=== PATIENT | female | born 1935 | race Caucasian/White ===

== ENCOUNTER → 2017-01-18 | Outpatient (CLI) | payer MEDICARE, BC | LOC: MW.CHIM 08:00 | PROVIDERS: ATTEND Internal Medicine | DX: I48.91 Unspecified atrial fibrillation (principal); I34.0 Nonrheumatic mitral (valve) insufficiency; I35.0 Nonrheumatic aortic (valve) stenosis; Z79.01 Long term (current) use of anticoagulants | CPT/HCPCS: 99214 ==

== ENCOUNTER → 2017-01-31 | Outpatient (CLI) | payer MEDICARE, BC ==
--- NOTE | 2017-02-02 15:14 | ECHO ---
The echocardiogram report can be seen in this patient's EMR in the Reports section. LOIS
== END ==
LOC: MW.US 13:02
PROVIDERS: ATTEND Internal Medicine
DX: I48.91 Unspecified atrial fibrillation (principal)
CPT/HCPCS: 93306

== ENCOUNTER → 2017-02-03 | Outpatient (CLI) | payer MEDICARE, BC | LOC: MW.CHIM 08:00 | PROVIDERS: ATTEND Internal Medicine | DX: I48.91 Unspecified atrial fibrillation (principal); I35.0 Nonrheumatic aortic (valve) stenosis | CPT/HCPCS: G0463 ==

== ENCOUNTER 2017-07-19 23:17 | Observation (INO) | payer MEDICARE, BC ==
--- NOTE | 2017-07-19 23:22 | EDM.PDOC ---
ED HPI GENERAL MEDICAL PROBLEM - General Stated Complaint: PT HAS CHEST PAIN Time Seen by Provider: 07/20/17 01:26 - History of Present Illness INITIAL COMMENTS - FREE TEXT/NARRATIVE: HISTORY AND PHYSICAL: History of present illness: Patient 81-year-old female history of atrial fibrillation who presents with a concern of palpitations she states she has been in and out of atrial fibrillation that she had approximate 4-5 days ago a recurrence shortly prior to arrival she denies associated chest pain shortness of breath nausea vomiting or diaphoresis Review of systems: As per history of present illness and below otherwise all systems reviewed and negative. Past medical history: As per history of present illness and as reviewed below otherwise noncontributory. Surgical history: As per history of present illness and as reviewed below otherwise noncontributory. Social history: No reported history of drug or alcohol abuse. Family history: As per history of present illness and as reviewed below otherwise noncontributory. Physical exam: HEENT: Atraumatic, normocephalic, pupils reactive, negative for conjunctival pallor or scleral icterus, mucous membranes moist, throat clear, neck supple, nontender, trachea midline. Lungs: Clear to auscultation, breath sounds equal bilaterally, chest nontender. Heart: S1S2, irregular, negative for clicks, rubs, or JVD. Abdomen: Soft, nondistended, nontender. Negative for masses or hepatosplenomegaly. Negative for costovertebral tenderness. Pelvis: Stable nontender. Genitourinary: Deferred. Rectal: Deferred. Extremities: Atraumatic, negative for cords or calf pain. Neurovascular unremarkable. Neuro: Awake, alert, oriented. Cranial nerves II through XII unremarkable. Cerebellum unremarkable. Motor and sensory unremarkable throughout. Exam nonfocal. Diagnostics: CBC CMP troponin PT/INR chest x-ray EKG Therapeutics: IV O2 monitor Impression: #1 palpitations history of atrial fibrillation Definitive disposition and diagnosis as appropriate pending reevaluation and review of above. - Related Data Allergies Allergy/AdvReac Type Severity Reaction Status Date / Time No Known Allergies Allergy Verified 07/19/17 23:25 Home Meds: Home Meds Levothyroxine 50 mcg PO DAILY #30 tablet 01/31/14 [Rx] Rivaroxaban [Xarelto] 20 mg PO DAILY 07/19/17 [History] Metoprolol Tartrate 12.5 mg PO DAILY 07/20/17 [History] Social & Family History - Tobacco Use Years of Tobacco use: 20 Used Tobacco, but Quit: Yes Month Tobacco Last Used: 1980 Second Hand Smoke Exposure: No - Alcohol Use Days Per Week of Alcohol Use: 0 - Recreational Drug Use Recreational Drug Use: No ED ROS GENERAL - Review of Systems Review Of Systems: ROS reveals no pertinent complaints other than HPI. ED EXAM, GENERAL - Physical Exam Exam: See Below (See dictation) Course - Vital Signs Text/Narrative:: Patient is currently in flutter with variable block with a controlled rate and remains asymptomatic at this time I discussed with her admission for observation case was discussed with Dr. Arreola who graciously accepts the patient to telemetry as an observation admission Last Recorded V/S: Last Vital Signs Temp 36.2 C 07/19/17 23:25 Pulse 68 07/19/17 23:50 Resp 19 07/20/17 00:25 BP 121/76 07/20/17 00:25 Pulse Ox 94 L 07/20/17 00:25 - Orders/Labs/Meds Orders: Active Orders 24 hr Category Date Time Status EKG 12 Lead [EKG Documentation Completion] [RC] STAT Care 07/20/17 00:05 Active EKG 12 Lead [EKG Documentation Completion] [RC] STAT Care 07/20/17 00:06 Active Chest 1V Frontal [CR] Stat Exams 07/19/17 23:28 Taken Labs: Laboratory Tests 07/19/17 07/19/17 07/19/17 Range/Units 23:41 23:41 23:41 WBC 7.15 (4.0-11.0) K/uL RBC 4.59 (4.30-5.90) M/uL Hgb 13.7 (12.0-16.0) g/dL Hct 41.2 (36.0-46.0) % MCV 89.8 (80.0-98.0) fL MCH 29.8 (27.0-32.0) pg MCHC 33.3 (31.0-37.0) g/dL RDW Std Deviation 45.3 (28.0-62.0) fl RDW Coeff of [place] 14 (11.0-15.0) % Plt Count 190 (150-400) K/uL MPV 9.80 (7.40-12.00) fL Neut % (Auto) 47.7 L (48.0-80.0) % Lymph % (Auto) 38.5 (16.0-40.0) % [place] % (Auto) 11.0 (0.0-15.0) % Eos % (Auto) 2.2 (0.0-7.0) % Baso % (Auto) 0.6 (0.0-1.5) % Neut # (Auto) 3.4 (1.4-5.7) K/uL Lymph # (Auto) 2.8 H (0.6-2.4) K/uL [place] # (Auto) 0.8 (0.0-0.8) K/uL Eos # (Auto) 0.2 (0.0-0.7) K/uL Baso # (Auto) 0.0 (0.0-0.1) K/uL Nucleated RBC % 0.0 /100WBC Nucleated RBCs # 0 K/uL INR 1.31 H (0.86-1.11) Sodium 140 (136-146) mmol/L Potassium 3.8 (3.5-5.1) mmol/L Chloride 109 (98-110) mmol/L Carbon Dioxide 22 (21-31) mmol/L BUN 21 (6.0-23.0) mg/dL Creatinine 1.0 (0.6-1.5) mg/dL Est Cr Clr Drug Dosing TNP Estimated GFR (MDRD) 53.5 ml/min Glucose 127 H (60-110) mg/dL Calcium 9.4 (8.8-10.8) mg/dL Total Bilirubin 0.3 (0.1-1.5) mg/dL AST 17 (5-40) IU/L ALT 12 (8-54) IU/L Alkaline Phosphatase 106 (40-150) Troponin I < 0.10 (0.0-0.29) NG/ML Total Protein 7.2 (6.0-8.0) g/dL Albumin 4.0 (3.4-4.8) g/dL Globulin 3.2 (2.0-3.5) g/dL Albumin/Globulin Ratio 1.3 (1.3-2.8) Meds: Medications Discontinued Medications Generic Name Dose Route Start Last Admin Trade Name Freq PRN Reason Stop Dose Admin Diltiazem HCl 25 mg 07/19/17 23:27 07/19/17 23:33 Diltiazem IVPUSH 07/19/17 23:28 25 mg ONETIME ONE Administration Departure - Departure Time of Disposition: 01:27 Disposition: Refer to Observation Condition: Good Clinical Impression: Afib, Atrial fibrillation, Atrial flutter - Discharge Information - My Orders Last 24 Hours: My Active Orders 07/19/17 23:28 Chest 1V Frontal [CR] Stat 07/20/17 00:05 EKG 12 Lead [EKG Documentation Completion] [RC] STAT 07/20/17 00:06 EKG 12 Lead [EKG Documentation Completion] [RC] STAT - Assessment/Plan Last 24 Hours: My Active Orders 07/19/17 23:28 Chest 1V Frontal [CR] Stat 07/20/17 00:05 EKG 12 Lead [EKG Documentation Completion] [RC] STAT 07/20/17 00:06 EKG 12 Lead [EKG Documentation Completion] [RC] STAT
[2017-07-19] MEDS ORDERED: Diltiazem 25 MG/5 ML SDV IVPUSH ONE (23:27)
[2017-07-20 00:22] LABS: CHLORIDE,CL 109 mmol/L (98-110); SODIUM,NA 140 mmol/L (136-146)
[2017-07-20] MEDS ORDERED: Morphine 2 MG/ML Syringe IVPUSH PRN (02:17)
[2017-07-20] MEDS ORDERED: Acetaminophen 325 MG Tab PO PRN (02:17)
[2017-07-20] MEDS ORDERED: Sodium Chloride 0.9% 1,000 ML IV SCH (02:30)
--- NOTE | 2017-07-20 09:56 | PCM.HP ---
<Shay House - Last Filed: 07/20/17 09:49> H&P History of Present Illness - General Date of Service: 07/20/17 Admit Problem/Dx: Admission Diagnosis/Problem Admission Diagnosis/Problem Atrial fibrillation Source of Information: Patient History Limitations: Reports: No Limitations - History of Present Illness Initial Comments - Free Text/Narative: 81-year-old female with a history of atrial fibrillation that is being admitted with atrial fibrillation/flutter with variable block as evidenced on EKG. Patient is currently taking short acting metoprolol 12.5 mg daily as well as a relative for anticoagulation secondary to her atrial fibrillation. Patient notes that over the past 4-5 days she has been experiencing palpitations but no chest pain, shortness of breath, nausea or vomiting. She does experience this periodically but usually does not present to the ER as the palpitations will resolve. She presented to the emergency room because the palpitations were persistent. Her daughter who accompanies the patient notes that the patient has been under increased stress lately secondary to the loss of a close friend and is wondering if the stress is contributing to her palpitations. She does follow with Dr. Hearn, planning advisor, here in [place]. Her primary care provider is Dr. Mosher. Patient did have an echocardiogram performed in January of this year which showed mild aortic stenosis and a recommendation was made for follow-up echocardiogram in 1 year. In speaking with the patient this morning, she reports no new symptoms and is ready to go home. She denies any headaches, dizziness, chest pain, palpitations, shortness of breath, wheezing, cough, abdominal pain, nausea, vomiting, constipation, diarrhea, numbness/tingling/ weakness in the upper and lower extremities bilaterally, peripheral edema, fever. ER course: EKG showed atrial fibrillation/flutter with variable block. Patient was given a one-time dose of diltiazem 25 mg IV and her heart rate improved from 142 to 90. Patient was also started on normal saline at 50 mL/hour. CBC, initial troponin, CMP, INR and chest x-ray were all unremarkable. Admission diagnosis: #1. Atrial fibrillation with RVR Discharge diagnosis: #1. Atrial fibrillation, rate controlled 81-year-old female admitted with atrial fibrillation with RVR with variable block as evidenced on EKG. Patient was given a one-time dose of diltiazem in the ER which resolved her RVR and her heart rate improved to 90. Patient's heart rate remained within normal limits throughout admission. Patient had no chest pain throughout admission. Telemetry showed no evidence of atrial fibrillation. At the time of discharge, the patient was ambulating without assistance, tolerating oral intake, voiding appropriately and not experiencing any palpitations. no pain Pain Score (Numeric/FACES): 0 - Related Data Allergies/Adverse Reactions: Allergies Allergy/AdvReac Type Severity Reaction Status Date / Time No Known Allergies Allergy Verified 07/19/17 23:25 Home Medications: Home Meds Levothyroxine 50 mcg PO DAILY #30 tablet 01/31/14 [Rx] Rivaroxaban [Xarelto] 20 mg PO DAILY 07/19/17 [History] Metoprolol Tartrate 12.5 mg PO DAILY 07/20/17 [History] Past Medical History HEENT History: Reports: Cataract, Hard of Hearing Cardiovascular History: Reports: Afib Respiratory History: Reports: None Gastrointestinal History: Reports: None Genitourinary History: Reports: None [employer] History: Reports: Musculoskeletal History: Reports: None Neurological History: Reports: None Psychiatric History: Reports: None Endocrine/Metabolic History: Reports: None Hematologic History: Reports: None Immunologic History: Reports: None Oncologic (Cancer) History: Reports: None Dermatologic History: Reports: None - Infectious Disease History Infectious Disease History: Reports: Chicken Pox, Measles, Mumps - Past Surgical History Head Surgeries/Procedures: Reports: None HEENT Surgical History: Reports: Cataract Surgery, Other (See Below) Other HEENT Surgeries/Procedures: hearing aid Musculoskeletal Surgical History: Reports: Knee Replacement, Other (See Below) Other Musculoskeletal Surgeries/Procedures:: both knee surgery Social & Family History - Family History Family Medical History: Noncontributory - Tobacco Use Smoking Status *Q: Former Smoker Years of Tobacco use: 20 Used Tobacco, but Quit: No Month Tobacco Last Used: 1980 Second Hand Smoke Exposure: No - Caffeine Use Caffeine Use: Reports: Coffee - Alcohol Use Days Per Week of Alcohol Use: 0 - Recreational Drug Use Recreational Drug Use: No H&P Review of Systems - Review of Systems: Review Of Systems: See Below General: Reports: No Symptoms HEENT: Reports: No Symptoms Pulmonary: Reports: No Symptoms Cardiovascular: Reports: Palpitations Gastrointestinal: Reports: No Symptoms Genitourinary: Reports: No Symptoms Musculoskeletal: Reports: No Symptoms Skin: Reports: No Symptoms Psychiatric: Reports: No Symptoms Neurological: Reports: No Symptoms Hematologic/Lymphatic: Reports: No Symptoms Immunologic: Reports: No Symptoms Exam - Exam Exam: See Below - Vital Signs Vital Signs: Last Vital Signs Temp 97.8 F 07/20/17 08:07 Pulse 69 07/20/17 08:07 Resp 18 07/20/17 08:07 BP 123/57 L 07/20/17 08:07 Pulse Ox 95 07/20/17 08:07 Weight: 77.383 kg - Exam General: Alert, Oriented, Cooperative HEENT: Conjunctiva Clear, Hearing Intact, Mucosa Moist & [place], Nares Patent, Normal Nasal Septum Neck: Supple, Trachea Midline, 2 Lungs: Clear to Auscultation, Normal Respiratory Effort Cardiovascular: Regular Rate, Regular Rhythm GI/Abdominal Exam: Normal Bowel Sounds, Soft, Non-Tender, No Organomegaly, No Distention, No Abnormal Bruit, No Mass Extremities: Normal Inspection, Normal Range of Motion, Non-Tender, No Pedal Edema, Normal Capillary Refill Peripheral Pulses: 2+: Radial (L), Radial (R), Posterior Tibial (L), Posterior Tibial (R) Skin: Warm, Dry, Intact Neuro Extensive - Mental Status: Alert, Oriented x3, Normal Mood/Affect, Normal Cognition Psychiatric: Alert, Normal Affect, Normal Mood - Patient Data Result Diagrams: 07/19/17 23:41 07/19/17 23:41 *Q Meaningful Use (ADM) - VTE *Q VTE Criteria *Q: - Stroke *Q Stroke Criteria *Q: - AMI *Q AMI Criteria *Q: - Problem List (1) Afib, Atrial fibrillation SNOMED Code(s): 85448713 ICD Code: I48.91 - UNSPECIFIED ATRIAL FIBRILLATION Status: Acute (2) Atrial flutter SNOMED Code(s): 5284066 ICD Code: I48.92 - UNSPECIFIED ATRIAL FLUTTER Status: Acute (3) Palpitations SNOMED Code(s): 86612009 ICD Code: R00.2 - PALPITATIONS Status: Acute Problem List Initiated/Reviewed/Updated: Yes Orders Last 24hrs: Active Orders 24 hr Category Date Time Status Discontinue Telemetry Monitoring [Cardiac Monitoring Care 07/20/17 08:49 Active Discontinue] [RC] Click to Edit Ready for Discharge [RC] PER UNIT ROUTINE Care 07/20/17 08:39 Active Telemetry Monitoring [Cardiac Monitoring] [RC] Q8H Care 07/20/17 01:34 Active Heart Healthy Diet [DIET] Diet 07/20/17 Breakfast Active Acetaminophen [Tylenol] Med 07/20/17 02:17 Active 650 mg PO Q6H PRN Morphine Med 07/20/17 02:17 Active 2 mg IVPUSH Q4H PRN Sodium Chloride 0.9% [Normal Saline] 1,000 ml Med 07/20/17 02:30 Active IV ASDIRECTED Medication Orders Acetaminophen (Tylenol) 650 mg PO Q6H PRN PRN Reason: Pain (mild 1-3) Sodium Chloride (Normal Saline) 1,000 mls @ 50 mls/hr IV ASDIRECTED KAYA Last Admin: 07/20/17 03:00 Dose: 50 mls/hr Morphine Sulfate (Morphine) 2 mg IVPUSH Q4H PRN PRN Reason: Pain (severe 7-10) Assessment/Plan Comment:: 81-year-old female with a history of atrial fibrillation that is being admitted with atrial fibrillation/flutter with variable block as evidenced on EKG. Patient is currently taking short acting metoprolol 12.5 mg daily as well as a relative for anticoagulation secondary to her atrial fibrillation. Patient notes that over the past 4-5 days she has been experiencing palpitations but no chest pain, shortness of breath, nausea or vomiting. She does experience this periodically but usually does not present to the ER as the palpitations will resolve. She presented to the emergency room because the palpitations were persistent. Her daughter who accompanies the patient notes that the patient has been under increased stress lately secondary to the loss of a close friend and is wondering if the stress is contributing to her palpitations. She does follow with Dr. Hearn, planning advisor, here in [place]. Her primary care provider is Dr. Mosher. Patient did have an echocardiogram performed in January of this year which showed mild aortic stenosis and a recommendation was made for follow-up echocardiogram in 1 year. In speaking with the patient this morning, she reports no new symptoms and is ready to go home. She denies any headaches, dizziness, chest pain, palpitations, shortness of breath, wheezing, cough, abdominal pain, nausea, vomiting, constipation, diarrhea, numbness/tingling/ weakness in the upper and lower extremities bilaterally, peripheral edema, fever. ER course: EKG showed atrial fibrillation/flutter with variable block. Patient was given a one-time dose of diltiazem 25 mg IV and her heart rate improved from 142 to 90. Patient was also started on normal saline at 50 mL/hour. CBC, initial troponin, CMP, INR and chest x-ray were all unremarkable. Patient was admitted to [facility] for observation. Place on telemetry with no acute cardiac events appreciated. Heart rate remained within normal limits throughout admission. Admission diagnosis: #1. Atrial fibrillation with RVR Discharge diagnosis: #1. Atrial fibrillation, rate controlled 81-year-old female admitted with atrial fibrillation with RVR with variable block as evidenced on EKG. Patient was given a one-time dose of diltiazem in the ER which resolved her RVR and her heart rate improved to 90. Patient's heart rate remained within normal limits throughout admission. Patient had no chest pain throughout admission. Telemetry showed no evidence of atrial fibrillation. At the time of discharge, the patient was ambulating without assistance, tolerating oral intake, voiding appropriately and not experiencing any palpitations. Echocardiogram was done in January of this year which showed mild aortic stenosis. Follow-up echocardiogram in 1 year was recommended. Discharge plan: #1. Patient will be set up for follow-up appointment with her planning advisor, Dr. Hearn. #2. Follow-up appointment with Dr. Mosher, patient's primary care provider #3. All home medications have been restarted including metoprolol, Xarelto, Synthroid. <Skip Arreola - Last Filed: 07/21/17 15:37> H&P History of Present Illness - General Admit Problem/Dx: Admission Diagnosis/Problem Admission Diagnosis/Problem Atrial fibrillation I performed a history and physical examination of the patient and I have discussed the management with the resident. I have reviewed the residents note and agree with the documented findings and plan of care Exam - Vital Signs Vital Signs: Last Vital Signs Temp 36.6 C 07/20/17 08:07 Pulse 69 07/20/17 08:07 Resp 18 07/20/17 08:07 BP 123/57 L 07/20/17 08:07 Pulse Ox 95 07/20/17 08:07 - Patient Data Result Diagrams: 07/19/17 23:41 07/19/17 23:41 *Q Meaningful Use (ADM) - VTE *Q VTE Criteria *Q: - Stroke *Q Stroke Criteria *Q: - AMI *Q AMI Criteria *Q:
--- NOTE | 2017-07-20 14:55 | CR ---
EXAM DATE: 07/20/17 PATIENT'S AGE: 81 Patient: ROHAN OSPINA Facility: [place], [place] Site . Site : [id number] Study: XRay Chest [id number] 11:39:20 PM Ordering Physician: Doctor Hart Final Report: INDICATION: AFib, palpitations TECHNIQUE: Chest 1 view. COMPARISON: None FINDINGS: Cardiovascular and mediastinum: Heart size and vasculature are normal in caliber and appearance. Mediastinum is within normal limits. Lungs and pleural space: Lungs are clear. No sign of infiltrate or mass. No sign of pleural effusion. No pneumothorax. Bones and soft tissues: Deformity of the left humeral head. IMPRESSION: Unremarkable chest. Dictated by Santana Navarrete MD @ 07/19/2017 11:40:32 PM Dictated by: Santana Navarrete MD @ 07/19/2017 23:40:43 (Electronic Signature) Report Signed by Proxy. LOIS
== END 2017-07-20 09:35 | disposition home or self-care (01) ==
LOC: MW.ED 23:17 → MW.MS 07-20 01:28
PROVIDERS: ADMIT Internal Medicine; ATTEND Internal Medicine
DX: I48.0 Paroxysmal atrial fibrillation (principal); I48.92 Unspecified atrial flutter; Z79.01 Long term (current) use of anticoagulants; Z79.899 Other long term (current) drug therapy; Z87.891 Personal history of nicotine dependence; Z96.659 Presence of unspecified artificial knee joint; Z98.49 Cataract extraction status, unspecified eye
CPT/HCPCS: 36415; 71010; 80053; 84484; 85025; 85610; 93005; 96374; 99285; J3490; J7040; 99283; G0378

== ENCOUNTER 2018-01-30 18:25 | Emergency (ER) | payer MEDICARE, BC ==
--- NOTE | 2018-01-30 19:30 | EDM.PDOC ---
ED HPI GENERAL MEDICAL PROBLEM - General Chief Complaint: General Stated Complaint: NUMBNESS LIP Time Seen by Provider: 01/30/18 19:28 Source of Information: Reports: Patient History Limitations: Reports: No Limitations - History of Present Illness INITIAL COMMENTS - FREE TEXT/NARRATIVE: HISTORY AND PHYSICAL: []82-year-old female presenting with numbness to her lower lip since she awakened this morning History of Present Illness: []Patient reports no other concerns no headaches and nausea and vomiting or abdominal pain Review of Systems: As per history of present illness and below otherwise all systems reviewed and negative. Past medical history: As per history of present illness and as reviewed below otherwise noncontributory. Surgical history: As per history of present illness and as reviewed below otherwise noncontributory. Social history: No reported history of drug or alcohol abuse. Family history: As per history of present illness and as reviewed below otherwise noncontributory. Physical exam: Alert and oriented female answering questions appropriately, no slurring of words. He can full sentences without any shortness breath. HEENT: Atraumatic, normocehpalic, pupils reactive, negative for conjunctival pallor or scleral icterus, mucous membranes moist, throat clear, neck supple, nontender, trachea midline. lower Lip is "numb". Mild drooping of her lip . EKG sinus rhythm. Lungs: Clear to auscultation, breath sounds equal bilaterally, chest non tender. Heart: S1S2, regular, negative for clicks, rubs, or JVD. Abdomen: Soft, nondistended, nontender. Negative for masses or hepatossplenmegaly. Negative for costovertebral tenderness. Pelvis: Stable nontender. Genitourinary: Deferred. Rectal: Deferred Extremities: Atraumatic, negative for cords or calf pain. Neurovascular unremarkable. Neuro: Awake, alert, oriented. Cranial nerves II through XII unremarkable. Cerebellum unremarkable. Motor and sensory unremarkable throughout. Exam nonfocal. Patient was offered the ability to stay for observation overnight with my concerns and refused opportunity to stay for observation Diagnostics: []head CT cbc, cmp, amylase, lipase EKG troponin Therapeutics: []Aspirin Impression: []UTI Lip numbness Plan: []Discharged home Keep up APPOINTMENT with Dr. Hearn tomorrow as scheduled Definitive disposition and diagnosis as appropriate pending reevaluation and review of above. Onset: Today, Sudden Duration: Hour(s): Location: Reports: Face Severity: Mild Improves with: Reports: None Worsens with: Reports: None - Related Data Allergies Allergy/AdvReac Type Severity Reaction Status Date / Time No Known Allergies Allergy Verified 01/30/18 19:15 Home Meds: Home Meds Levothyroxine 50 mcg PO DAILY #30 tablet 01/31/14 [Rx] Rivaroxaban [Xarelto] 20 mg PO DAILY 07/19/17 [History] Metoprolol Tartrate 12.5 mg PO DAILY 07/20/17 [History] Ciprofloxacin HCl [Cipro] 500 mg PO BID #1 tablet 01/30/18 [Rx] Past Medical History HEENT History: Reports: Cataract, Hard of Hearing Cardiovascular History: Reports: Afib Respiratory History: Reports: None Gastrointestinal History: Reports: None Genitourinary History: Reports: None [employer] History: Reports: Musculoskeletal History: Reports: None Neurological History: Reports: None Psychiatric History: Reports: None Endocrine/Metabolic History: Reports: None Hematologic History: Reports: None Immunologic History: Reports: None Oncologic (Cancer) History: Reports: None Dermatologic History: Reports: None - Infectious Disease History Infectious Disease History: Reports: Chicken Pox, Measles, Mumps - Past Surgical History Head Surgeries/Procedures: Reports: None HEENT Surgical History: Reports: Cataract Surgery, Other (See Below) Other HEENT Surgeries/Procedures: hearing aid Musculoskeletal Surgical History: Reports: Knee Replacement, Other (See Below) Other Musculoskeletal Surgeries/Procedures:: both knee surgery Social & Family History - Family History Family Medical History: Noncontributory - Tobacco Use Smoking Status *Q: Never Smoker Second Hand Smoke Exposure: No - Caffeine Use Caffeine Use: Reports: Coffee - Recreational Drug Use Recreational Drug Use: No ED ROS GENERAL - Review of Systems Review Of Systems: ROS reveals no pertinent complaints other than HPI. ED EXAM, GENERAL - Physical Exam Exam: See Below (see dictation) Course - Vital Signs Last Recorded V/S: Last Vital Signs Temp 36.5 C 01/30/18 19:13 Pulse 70 01/30/18 20:20 Resp 18 01/30/18 20:20 BP 164/75 H 01/30/18 20:20 Pulse Ox 95 01/30/18 20:20 - Orders/Labs/Meds Orders: Active Orders 24 hr Category Date Time Status Cardiac Monitoring [RC] . DIRECTED Care 01/30/18 19:32 Active EKG Documentation Completion [RC] STAT Care 01/30/18 19:32 Active Oxygen Therapy [RC] ASDIRECTED Care 01/30/18 19:32 Active Chest 1V Frontal [CR] Stat Exams 01/30/18 19:32 Taken Head wo Cont [CT] Stat Exams 01/30/18 19:27 Taken UA W/MICROSCOPIC [URIN] Stat Lab 01/30/18 19:35 Ordered Sodium Chloride 0.9% [Saline Flush] Med 01/30/18 19:32 Active 10 ml FLUSH ASDIRECTED PRN Sodium Chloride 0.9% [Saline Flush] Med 01/30/18 19:32 Active 2.5 ml FLUSH ASDIRECTED PRN Saline Lock Insert [OM.PC] Stat Oth 01/30/18 19:32 Ordered Medication Orders Sodium Chloride (Saline Flush) 10 ml FLUSH ASDIRECTED PRN PRN Reason: Keep Vein Open Sodium Chloride (Saline Flush) 2.5 ml FLUSH ASDIRECTED PRN PRN Reason: Keep Vein Open Labs: Laboratory Tests 01/30/18 01/30/18 01/30/18 Range/Units 19:35 19:49 19:49 WBC 6.56 (4.0-11.0) K/uL RBC 4.72 (4.30-5.90) M/uL Hgb 14.0 (12.0-16.0) g/dL Hct 42.7 (36.0-46.0) % MCV 90.5 (80.0-98.0) fL MCH 29.7 (27.0-32.0) pg MCHC 32.8 (31.0-37.0) g/dL RDW Std Deviation 46.7 (28.0-62.0) fl RDW Coeff of Dominik 14 (11.0-15.0) % Plt Count 228 (150-400) K/uL MPV 10.00 (7.40-12.00) fL Neut % (Auto) 61.4 (48.0-80.0) % Lymph % (Auto) 23.9 (16.0-40.0) % [place] % (Auto) 13.0 (0.0-15.0) % Eos % (Auto) 1.2 (0.0-7.0) % Baso % (Auto) 0.5 (0.0-1.5) % Neut # (Auto) 4.0 (1.4-5.7) K/uL Lymph # (Auto) 1.6 (0.6-2.4) K/uL [place] # (Auto) 0.9 H (0.0-0.8) K/uL Eos # (Auto) 0.1 (0.0-0.7) K/uL Baso # (Auto) 0.0 (0.0-0.1) K/uL Nucleated RBC % 0.0 /100WBC Nucleated RBCs # 0 K/uL INR 1.01 Sodium (136-145) mmol/L Potassium (3.5-5.1) mmol/L Chloride (98-107) mmol/L Carbon Dioxide (21.0-32.0) mmol/L BUN (7.0-18.0) mg/dL Creatinine (0.6-1.0) mg/dL Est Cr Clr Drug Dosing mL/min Estimated GFR (MDRD) ml/min Glucose (74-106) mg/dL Calcium (8.5-10.1) mg/dL Total Bilirubin (0.2-1.0) mg/dL AST (15-37) IU/L ALT (14-63) IU/L Alkaline Phosphatase (46-116) U/L Troponin I (0.000-0.056) ng/mL Total Protein (6.4-8.2) g/dL Albumin (3.4-5.0) g/dL Globulin (2.0-3.5) g/dL Albumin/Globulin Ratio (1.3-2.8) Amylase (25-115) U/L Lipase (73-393) U/L Urine Color YELLOW Urine Appearance SLT CLOUDY Urine pH 5.5 (5.0-8.0) Ur Specific [place] 1.010 (1.001-1.035) Urine Protein NEGATIVE (NEGATIVE) mg/dL Urine Glucose (UA) NEGATIVE (NEGATIVE) mg/dL Urine Ketones NEGATIVE (NEGATIVE) mg/dL Urine Occult Blood NEGATIVE (NEGATIVE) Urine Nitrite POSITIVE H (NEGATIVE) Urine Bilirubin NEGATIVE (NEGATIVE) Urine Urobilinogen 0.2 (<2.0) EU/dL Ur Leukocyte Esterase TRACE (NEGATIVE) Urine RBC 0-1 (0-2/HPF) Urine WBC 0-2 (0-5/HPF) Ur Epithelial Cells MODERATE (NONE-FEW) Urine Bacteria 2+ H (NEGATIVE) 01/30/18 Range/Units 19:49 WBC (4.0-11.0) K/uL RBC (4.30-5.90) M/uL Hgb (12.0-16.0) g/dL Hct (36.0-46.0) % MCV (80.0-98.0) fL MCH (27.0-32.0) pg MCHC (31.0-37.0) g/dL RDW Std Deviation (28.0-62.0) fl RDW Coeff of Dominik (11.0-15.0) % Plt Count (150-400) K/uL MPV (7.40-12.00) fL Neut % (Auto) (48.0-80.0) % Lymph % (Auto) (16.0-40.0) % [place] % (Auto) (0.0-15.0) % Eos % (Auto) (0.0-7.0) % Baso % (Auto) (0.0-1.5) % Neut # (Auto) (1.4-5.7) K/uL Lymph # (Auto) (0.6-2.4) K/uL [place] # (Auto) (0.0-0.8) K/uL Eos # (Auto) (0.0-0.7) K/uL Baso # (Auto) (0.0-0.1) K/uL Nucleated RBC % /100WBC Nucleated RBCs # K/uL INR Sodium 139 (136-145) mmol/L Potassium 4.2 (3.5-5.1) mmol/L Chloride 106 (98-107) mmol/L Carbon Dioxide 25.4 (21.0-32.0) mmol/L BUN 26 H (7.0-18.0) mg/dL Creatinine 1.4 H (0.6-1.0) mg/dL Est Cr Clr Drug Dosing 26.51 mL/min Estimated GFR (MDRD) 36.2 ml/min Glucose 101 (74-106) mg/dL Calcium 9.8 (8.5-10.1) mg/dL Total Bilirubin 0.4 (0.2-1.0) mg/dL AST 19 (15-37) IU/L ALT 19 (14-63) IU/L Alkaline Phosphatase 108 (46-116) U/L Troponin I < 0.050 (0.000-0.056) ng/mL Total Protein 8.2 (6.4-8.2) g/dL Albumin 4.3 (3.4-5.0) g/dL Globulin 3.9 H (2.0-3.5) g/dL Albumin/Globulin Ratio 1.1 L (1.3-2.8) Amylase 74 (25-115) U/L Lipase 114 (73-393) U/L Urine Color Urine Appearance Urine pH (5.0-8.0) Ur Specific [place] (1.001-1.035) Urine Protein (NEGATIVE) mg/dL Urine Glucose (UA) (NEGATIVE) mg/dL Urine Ketones (NEGATIVE) mg/dL Urine Occult Blood (NEGATIVE) Urine Nitrite (NEGATIVE) Urine Bilirubin (NEGATIVE) Urine Urobilinogen (<2.0) EU/dL Ur Leukocyte Esterase (NEGATIVE) Urine RBC (0-2/HPF) Urine WBC (0-5/HPF) Ur Epithelial Cells (NONE-FEW) Urine Bacteria (NEGATIVE) Meds: Medications Generic Name Dose Route Start Last Admin Trade Name Freq PRN Reason Stop Dose Admin Sodium Chloride 10 ml 01/30/18 19:32 Saline Flush FLUSH ASDIRECTED PRN Keep Vein Open Sodium Chloride 2.5 ml 01/30/18 19:32 Saline Flush FLUSH ASDIRECTED PRN Keep Vein Open Discontinued Medications Generic Name Dose Route Start Last Admin Trade Name Sheron PRN Reason Stop Dose Admin Aspirin 324 mg 01/30/18 19:32 01/30/18 19:54 Aspirin PO 01/30/18 19:33 Not Given ONETIME ONE Ciprofloxacin 500 mg 01/30/18 20:10 01/30/18 20:19 Ciprofloxacin Hcl PO 01/30/18 20:11 500 mg ONETIME ONE Administration Departure - Departure Time of Disposition: 20:24 Disposition: Home, Self-Care 01 Condition: Good Clinical Impression: UTI, Urinary tract infectious disease, Numbness of lip - Discharge Information Prescriptions: Ciprofloxacin HCl [Cipro] 500 mg PO BID #1 tablet Instructions: Urinalysis Test Referrals: PCP,None [Primary Care Provider] - Forms: ED Department Discharge Additional Instructions: The following information is given to patients seen in the emergency department who are being discharged to home. This information is to outline your options for follow-up care. We provide all patients seen in our emergency department with a follow-up referral. The need for follow-up, as well as the timing and circumstances, are variable depending upon the specifics of your emergency department visit. If you don't have a primary care physician on staff, we will provide you with a referral. We always advise you to contact your personal physician following an emergency department visit to inform them of the circumstance of the visit and for follow-up with them and/or the need for any referrals to a consulting specialist. The emergency department will also refer you to a specialist when appropriate. This referral assures that you have the opportunity for followup care with a specialist. All of these measure are taken in an effort to provide you with optimal care, which includes your followup. Under all circumstances we always encourage you to contact your private physician who remains a resource for coordinating your care. When calling for followup care, please make the office aware that this follow-up is from your recent emergency room visit. If for any reason you are refused follow-up, please contact the [facility] emergency department at and asked to speak to the emergency department charge nurse. You has been found to have a UTI your testing has been unremarkable CT scan is without brain bleed oriented infarct Appointment with Dr. Hearn tomorrow as scheduled ReTurn to the emergency room as discussed and directed - My Orders Last 24 Hours: My Active Orders 01/30/18 19:27 Head wo Cont [CT] Stat 01/30/18 19:32 Cardiac Monitoring [RC] . DIRECTED EKG Documentation Completion [RC] STAT Oxygen Therapy [RC] ASDIRECTED Chest 1V Frontal [CR] Stat Sodium Chloride 0.9% [Saline Flush] 10 ml FLUSH ASDIRECTED PRN Sodium Chloride 0.9% [Saline Flush] 2.5 ml FLUSH ASDIRECTED PRN Saline Lock Insert [OM.PC] Stat 01/30/18 19:35 UA W/MICROSCOPIC [URIN] Stat - Assessment/Plan Last 24 Hours: My Active Orders 01/30/18 19:27 Head wo Cont [CT] Stat 01/30/18 19:32 Cardiac Monitoring [RC] . DIRECTED EKG Documentation Completion [RC] STAT Oxygen Therapy [RC] ASDIRECTED Chest 1V Frontal [CR] Stat Sodium Chloride 0.9% [Saline Flush] 10 ml FLUSH ASDIRECTED PRN Sodium Chloride 0.9% [Saline Flush] 2.5 ml FLUSH ASDIRECTED PRN Saline Lock Insert [OM.PC] Stat 01/30/18 19:35 UA W/MICROSCOPIC [URIN] Stat
[2018-01-30] MEDS ORDERED: Sodium Chloride 0.9% 10 ML Syringe FLUSH PRN (19:32)
[2018-01-30] MEDS ORDERED: Aspirin 81 MG Tab.Chew PO ONE (19:32)
[2018-01-30] MEDS ORDERED: Sodium Chloride 0.9% 2.5 ML Syringe FLUSH PRN (19:32)
[2018-01-30] MEDS ORDERED: Ciprofloxacin 500 MG Tab PO ONE (20:10)
[2018-01-30 20:15] LABS: CHLORIDE,CL 106 mmol/L (98-107); SODIUM,NA 139 mmol/L (136-145)
--- NOTE | 2018-01-31 11:11 | CT ---
EXAM DATE: 01/30/18 PATIENT'S AGE: 82 Patient: ROHAN OSPINA Facility: [place], [place] Site . Site : 1935 Study: CT Head STROKE PROTOCOL [id number]/21/2018 7:38:48 PM Ordering Physician: Doctor Hart Final Report: INDICATION: Stroke Code. CT HEAD WITHOUT CONTRAST TECHNIQUE: Multiple axial CT images were performed through the head without intravenous contrast administration. COMPARISON: No previous studies are currently available for comparison. FINDINGS: No acute intracranial hemorrhage is identified. No extra-axial collections are evident and there is no mass effect or midline shift. There is mild diffuse age-related brain atrophy. Ventricular size and configuration are within normal limits for the patient`s age. Galo-white differentiation is within normal limits. There is patchy hypodensity in the periventricular white matter, a nonspecific finding which most likely reflects chronic small vessel ischemic change. Intracranial atherosclerotic vascular calcifications are noted. Osseous structures are within normal limits and no fractures are seen. Included portions of the paranasal sinuses and mastoid air cells are normally aerated. IMPRESSION: 1. No acute intracranial abnormality identified. 2. Age-related brain atrophy, white matter hypodensity consistent with chronic small vessel ischemic change, and intracranial atherosclerotic vascular calcifications. Reported to Salvador Heath RN at 7:49pm 01/30/2018 AMALIA OBRIEN MD [employer] Dictated by: John Obrien MD @ 01/30/2018 19:55:16 (Electronic Signature) Report Signed by Proxy. [facility]
--- NOTE | 2018-01-31 14:30 | CR ---
EXAM DATE: 01/30/18 PATIENT'S AGE: 82 Patient: ROHAN OSPINA Facility: [place], [place] Site . Site : 1935 Study: XRay Chest [id number]/21/2018 8:01:24 PM Ordering Physician: Doctor Hart Final Report: INDICATION: Stroke protocol. COMPARISON: 07/19/2017. FINDINGS: A portable AP upright view of the chest was obtained. The cardiac silhouette and pulmonary vasculature are within normal limits. The lungs are clear bilaterally. IMPRESSION: No evidence of acute pulmonary disease. Dictated by Yandel Davies MD @ 01/30/2018 8:14:24 PM Dictated by: Yandel Davies MD @ 01/30/2018 20:14:35 (Electronic Signature) Report Signed by Proxy. [facility]ya
== END 2018-01-30 20:40 | disposition home or self-care (01) ==
LOC: MW.ED 18:25
DX: N39.0 Urinary tract infection, site not specified (principal); R20.0 Anesthesia of skin; I48.91 Unspecified atrial fibrillation; Z79.899 Other long term (current) drug therapy
CPT/HCPCS: 36415; 70450; 71045; 80053; 81001; 82150; 83690; 84484; 85025; 85610; 93005; 99285; A9270

== ENCOUNTER 2021-12-06 14:24 | Emergency (ER) | payer MEDICARE, BC | END 2021-12-06 15:25 | disposition home or self-care (01) | LOC: MW.ED 14:24 | DX: B02.9 Zoster without complications (principal); I48.91 Unspecified atrial fibrillation; Z79.899 Other long term (current) drug therapy | CPT/HCPCS: 99283 ==

== ENCOUNTER 2022-12-17 14:37 | Emergency (ER) | payer MEDICARE, BC ==
[2022-12-17] MEDS ORDERED: Sodium Chloride 0.9% 10 ML Syringe FLUSH PRN ×2 (14:43→15:11)
[2022-12-17] MEDS ORDERED: Sodium Chloride 0.9% 2.5 ML Syringe FLUSH PRN ×2 (14:43→15:11)
[2022-12-17] MEDS ORDERED: Sodium Chloride 0.9% 1,000 ML IV ONE (15:11)
[2022-12-17] MEDS ORDERED: Sodium Chloride 0.9% 500 ML IV STA (15:11)
[2022-12-17] MEDS ORDERED: Metoprolol Tartrate 5 MG/5 ML SDV IVPUSH STA (15:12)
[2022-12-17 15:22] LABS: CARBON DIOXIDE,CO2 23.7 mmol/L (21.0-32.0); POTASSIUM,K 4.3 mmol/L (3.5-5.1)
[2022-12-17] MEDS ORDERED: Metoprolol Succinate 25 MG Tab.ER PO STA (15:45)
== END 2022-12-17 16:33 | disposition home or self-care (01) ==
LOC: MW.ED 14:37
DX: I48.91 Unspecified atrial fibrillation (principal); R94.31 Abnormal electrocardiogram [ECG] [EKG]; I10 Essential (primary) hypertension; Z79.82 Long term (current) use of aspirin; Z79.01 Long term (current) use of anticoagulants
CPT/HCPCS: 36415; 71045; 80053; 81003; 83735; 84484; 85025; 93005; 96361; 96374; 99285; A9270; J3490; J7030

== ENCOUNTER 2023-02-23 21:15 | Emergency (ER) | payer MEDICARE, BC ==
[2023-02-23] MEDS ORDERED: Albuterol/Ipratropium 3.0-0.5 MG/3 ML Neb Soln ONE (21:20)
[2023-02-23] MEDS ORDERED: Sodium Chloride 0.9% 2.5 ML Syringe FLUSH PRN (21:23)
[2023-02-23] MEDS ORDERED: Sodium Chloride 0.9% 10 ML Syringe FLUSH PRN (21:23)
[2023-02-23 21:40] LABS: BASOPHILS ABSOLUTE AUTO 0.1 K/uL (0.0-0.1); BASOPHILS PERCENT AUTO 0.5 % (0.0-1.5); EOSINOPHILS ABSOLUTE AUTO 0.1 K/uL (0.0-0.7); EOSINOPHILS PERCENT AUTO 0.9 % (0.0-7.0); HEMATOCRIT 42.4 % (36.0-46.0); HEMOGLOBIN 13.6 g/dL (12.0-16.0); LYMPHOCYTES ABSOLUTE AUTO 1.3 K/uL (0.6-2.4); LYMPHOCYTES PERCENT AUTO 14.1 % (16.0-40.0); MEAN CORPUSCULAR HGB CONC 32.1 g/dL (31.0-37.0); MEAN CORPUSCULAR VOLUME 90.4 fL (80.0-98.0); MONOCYTES ABSOLUTE AUTO 0.6 K/uL (0.0-0.8); MONOCYTES PERCENT AUTO 6.9 % (0.0-15.0); NEUTROPHILS ABSOLUTE AUTO 7.2 K/uL (1.4-5.7); NEUTROPHILS PERCENT AUTO 77.6 % (48.0-80.0); NRBC ABSOLUTE 0 K/uL; PLATELET COUNT,PLT 205 K/uL (150-400); RED BLOOD CELL COUNT 4.69 M/uL (4.30-5.90); WHITE BLOOD CELL COUNT,WBC 9.27 K/uL (4.0-11.0)
[2023-02-23] MEDS ORDERED: Albuterol/Ipratropium 3.0-0.5 MG/3 ML Neb Soln NEB STA (21:56)
[2023-02-23] MEDS ORDERED: Furosemide 40 MG/4 ML VIAL IVPUSH ONE (22:00)
[2023-02-23 22:03] LABS: ALBUMIN 3.9 g/dL (3.4-5.0); BILIRUBIN TOTAL 0.4 mg/dL (0.2-1.0); CALCIUM 9.2 mg/dL (8.5-10.1); CARBON DIOXIDE,CO2 23.2 mmol/L (21.0-32.0); CREATININE 1.2 mg/dL (0.6-1.0); EST CRCL DRUG DOSING (CG) 28.35 mL/min; POTASSIUM,K 3.8 mmol/L (3.5-5.1); PROTEIN TOTAL,TP 7.7 g/dL (6.4-8.2)
== END 2023-02-23 23:34 | disposition home or self-care (01) ==
LOC: MW.ED 21:15
DX: R09.89 Other specified symptoms and signs involving the circulatory and respiratory systems (principal); I48.91 Unspecified atrial fibrillation; I10 Essential (primary) hypertension; Z79.01 Long term (current) use of anticoagulants; Z79.82 Long term (current) use of aspirin; Z20.822 Contact with and (suspected) exposure to COVID-19
CPT/HCPCS: 36415; 71045; 80053; 83605; 83880; 84484; 85025; 87040; 93005; 96374; 99285; J1940; J3490; U0002; J7620-GY

== ENCOUNTER 2025-05-26 10:36 | Emergency (ER) | payer MEDICARE, BC | END 2025-05-26 11:43 | disposition home or self-care (01) | LOC: MW.ED 10:36 | DX: M54.42 Lumbago with sciatica, left side (principal); I48.91 Unspecified atrial fibrillation; I10 Essential (primary) hypertension; Z95.2 Presence of prosthetic heart valve; Z79.01 Long term (current) use of anticoagulants; Z79.899 Other long term (current) drug therapy | CPT/HCPCS: 99283 ==